=== PATIENT | female | born 1980 | race American Indian/Alaskan Native ===

== ENCOUNTER 2018-01-21 11:04 | Emergency (ER) | payer SELFPAY ==
[2018-01-21 11:46] VITALS: BP 155/94
[2018-01-21] MEDS ORDERED: TETRACAINE 0.5% OU PRN (14:42)
[2018-01-21] MEDS ORDERED: FUL-GLO OP ONE (14:42)
--- NOTE | 2018-01-21 14:42 | Emergency Department Report ---
Eye Injury/Foreign Body - HPI Duration: 1 Day Eye Location: Left Severity: Mild Tetanus Status: Not up to Date Eye Symptoms: Eye Pain: Yes, Blurred Vision: No, Eye Redness: No, Grinding/ Hammering Metal: No, Used Eye Protection: No, Contact Lens Use: No, Recalls Injury: No, Photophobia: Yes Other History: This is a 37-year-old -[place] female who presents with a productive cough, congestion, and left eye drainage that started last night. Patient reports feeling sensation of something in her left eye and feels slight blurriness with light sensitivity. Patient denies wearing contacts or glasses. States she is able to see as long as she is squinting. She was unable to report to work last night and today. Denies fever, chest pain, shortness of breath, nausea or vomiting, sinus pressure. ED Review of Systems ROS: Stated complaint: EYE PROBLEMS Other details as noted in HPI Constitutional: denies: chills, fever Eyes: eye discharge (left eye, clear discharge), vision change (blurry). denies : eye pain ENT: congestion. denies: ear pain, throat pain, dental pain, hearing loss, epistaxis Respiratory: denies: cough, shortness of breath, wheezing Cardiovascular: denies: chest pain, palpitations Gastrointestinal: denies: abdominal pain, nausea, vomiting, diarrhea Neurological: denies: headache, weakness, paresthesias Psychiatric: denies: anxiety, depression ED Past Medical Hx - Past Medical History Previous Medical History?: No - Surgical History Past Surgical History?: No - Social History Smoking Status: Current Every Day Smoker Substance Use Type: Alcohol - Medications Home Medications: Home Medications Medication Instructions Recorded Confirmed Last Taken Type prednisoLONE ACETATE [Omnipred 1% 1 - 2 drop OP BID #1 bottle 01/21/18 Unknown Rx Eye Drops] Eye Injury Exam - Exam General: Vital signs noted. No distress. Alert and acting appropriately. - Visual Acuity Left Eye Exam: Left Mucous Discharge, Left Fluorescein Uptake, Left Photophobia, Both EOMI, Neither Injection, Neither Chemosis, Neither Abnormal Pupil, Neither Eye Foreign Body, Neither Lid Foreign Body, Neither Purulent Discharge, Neither Fluorescein Uptake (slit lamp), Neither Cell/Flare (slit lamp), Neither Corneal Edema ED Course Vital Signs 01/21/18 11:41 Temperature 98.3 F Pulse Rate 95 H Respiratory 16 Rate Blood Pressure 155/94 O2 Sat by Pulse 100 Oximetry Critical care attestation.: If time is entered above; I have spent that time in minutes in the direct care of this critically ill patient, excluding procedure time. ED Disposition Clinical Impression: Uveitis Disposition: DC-01 TO HOME OR SELFCARE Is pt being admited?: No Does the pt Need Aspirin: No Condition: Stable Instructions: Iritis (ED) Additional Instructions: Follow-up with the pump press operator in 24 hours. Apply the steroid drops to left eye as prescribed. Please only use drops for 1-2 days and follow-up with pump press operator within 24 hours. Prescriptions: prednisoLONE ACETATE [Omnipred 1% Eye Drops] 1 - 2 drop OP BID #1 bottle Referrals: [facility] [Provider Group] - 3-5 Days [facility] [Provider Group] - 3-5 Days [facility] [Provider Group] - 3-5 Days Time of Disposition: 15:20 Print Language: [id number]
== END 2018-01-21 15:33 | disposition home or self-care (01) ==
LOC: ED 11:04
DX: H20.9 Unspecified iridocyclitis (principal); F17.200 Nicotine dependence, unspecified, uncomplicated
CPT/HCPCS: 99283